=== PATIENT | male | born 1985 | race Two or more races ===

== ENCOUNTER 2020-06-22 11:58 | Emergency (ER) | payer SELFPAY ==
[2020-06-22] MEDS ORDERED: MAG HYDROX/AL HYDROX/SIMETH SUSP 30 ML UDCUP PO ONE (14:32)
[2020-06-22] MEDS ORDERED: METOCLOPRAMIDE HCL ORAL SOLN 10 MG/10 ML UDCUP PO ONE (14:32)
[2020-06-22] MEDS ORDERED: LIDOCAINE 2% VISCOUS SOLN 15 ML UDCUP PO ONE (14:32)
[2020-06-22 15:22] LABS: ABSOLUTE BASOPHILS # (AUTO) 0.1 10^3/uL (0.0-0.2); ABSOLUTE LYMPHOCYTES (AUTO) 1.6 10^3/uL (0.5-4.7); ABSOLUTE MONOCYTES (AUTO) 0.4 10^3/uL (0.1-1.4); ABSOLUTE NEUT (AUTO) 4.2 10^3/uL (1.7-8.2); BASOPHILS % (AUTO) 0.9 % (0-2); EOSINOPHILS % (AUTO) 0.5 % (0-6); HEMATOCRIT 43.8 % (37.9-51.0); LYMPHOCYTES % (AUTO) 24.9 % (13-45); MEAN CORPUSCULAR HEMOGLOBIN 28.8 pg (27.0-33.4); MEAN CORPUSCULAR HGB CONC 34.3 g/dL (32.0-36.0); MEAN CORPUSCULAR VOLUME 84 fl (80-97); MONOCYTES % (AUTO) 5.9 % (3-13); PLATELET COUNT 312 10^3/uL (150-450); RED BLOOD COUNT 5.22 10^6/uL (4.35-5.55); RED CELL DISTRIBUTION WIDTH 14.2 % (11.5-14.0); SEGMENTED NEUTROPHILS % (AUTO) 67.8 % (42-78); TOTAL CELLS COUNTED % (AUTO) 100 %; WHITE BLOOD COUNT 6.3 10^3/uL (4.0-10.5)
[2020-06-22 15:40] LABS: ALBUMIN 4.8 g/dL (3.5-5.0); ALKALINE PHOSPHATASE 82 U/L (38-126); ANION GAP 8 (5-19); ASPARTATE AMINO TRANSFERASE 39 U/L (17-59); BILIRUBIN,TOTAL 0.4 mg/dL (0.2-1.3); BLOOD UREA NITROGEN 15 mg/dL (7-20); CALCIUM 9.8 mg/dL (8.4-10.2); CARBON DIOXIDE 28 mmol/L (22-30); CHLORIDE 104 mmol/L (98-107); GLUCOSE 108 mg/dL (75-110); POTASSIUM 4.7 mmol/L (3.6-5.0); TOTAL PROTEIN 8.4 g/dL (6.3-8.2)
--- NOTE | 2020-06-22 16:54 | ER Document Report ---
ED General - General Chief Complaint: Nausea/Vomiting Stated Complaint: CHILLS/VOMITING Time Seen by Provider: 06/22/20 14:04 Mode of Arrival: Ambulatory Information source: Patient Notes: Use the Induction Manager system to obtain history as well as to help me with exam and explanation of evaluation and work-up. - HPI Notes: Patient presents with nausea and "not feeling right" with some epigastric discomfort. He states he does not have any significant pain he just feels that he has dizziness and a lot of nausea. The discomfort in the epigastric area is mild. It does not radiate. Nothing makes it better or worse. He states this had the symptoms for 2 to 3 days. He denies any pain anywhere other than as mentioned above. No cough cold or congestion. No known covid virus exposures. No significant past medical history. - Related Data Allergies/Adverse Reactions: No Known Allergies Allergy (Unverified 06/22/20 13:43) Past Medical History - General Information source: Patient - Social History Smoking Status: Current Every Day Smoker Frequency of alcohol use: Social Drug Abuse: None Family History: Reviewed & Not Pertinent Patient has homicidal ideation: No Review of Systems - Review of Systems Constitutional: denies: Chills, Fever Cardiovascular: denies: Chest pain, Palpitations Respiratory: denies: Cough, Short of breath -: Yes All other systems reviewed and negative Physical Exam - Vital signs Vitals: Temp Pulse Resp BP Pulse Ox 97.4 F 70 16 138/86 H 99 06/22/20 13:30 06/22/20 13:30 06/22/20 13:30 06/22/20 13:30 06/22/20 13:30 Interpretation: Normal - General General appearance: Appears well, Alert - HEENT Head: Normocephalic, Atraumatic Eyes: Normal Pupils: PERRL - Respiratory Respiratory status: No respiratory distress Chest status: Nontender Breath sounds: Normal Chest palpation: Normal - Cardiovascular Rhythm: Regular Heart sounds: Normal auscultation Murmur: No - Abdominal Inspection: Normal Distension: No distension Bowel sounds: Normal Tenderness: Nontender Organomegaly: No organomegaly - Back Back: Normal, Nontender - Extremities General upper extremity: Normal inspection, Nontender, Normal color, Normal ROM, Normal temperature General lower extremity: Normal inspection, Nontender, Normal color, Normal ROM, Normal temperature, Normal weight bearing. No: Henrietta's sign - Neurological Neuro grossly intact: Yes Cognition: Normal Orientation: AAOx4 [place] Coma Scale Eye Opening: Spontaneous [place] Coma Scale Verbal: Oriented Kryst[place] Coma Scale Motor: Obeys Commands [place] Coma Scale Total: 15 Speech: Normal Motor strength normal: LUE, RUE, LLE, RLE Sensory: Normal - Psychological Associated symptoms: Normal affect, Normal mood - Skin Skin Temperature: Warm Skin Moisture: Dry Skin Color: Normal Course - Re-evaluation Re-evalutation: 06/22/20 17:36 Patient presents with some nausea and "not feeling right with some dizziness. He never had any significant pain. He feels much better after GI cocktail. I think this was a gastrointestinal pathology that led to his symptoms today. His EKG does have some nonspecific changes however 2 EKGs obtained approximate 2 hours apart are unchanged 2 troponins are also negative and he never had any significant pain therefore I think the nonspecific EKG changes can be followed up as an outpatient I will also discharge the patient on Carafate. - Vital Signs Vital signs: Temp Pulse Resp BP Pulse Ox 97.4 F 70 16 138/86 H 99 06/22/20 13:30 06/22/20 13:30 06/22/20 13:30 06/22/20 13:30 06/22/20 13:30 - Laboratory Result Diagrams: 06/22/20 15:00 06/22/20 15:00 Laboratory results interpreted by me: 06/22/20 06/22/20 15:00 15:00 RDW 14.2 H ALT 71 H Total Protein 8.4 H - Diagnostic Test Radiology reviewed: Image reviewed, Reports reviewed - EKG Interpretation by [facility] EKG shows normal: Sinus rhythm Rate: Normal - 60 Rhythm: NSR [place]/QRS: No: Right axis deviation, Left axis deviation Additional EKG results interpreted by me: 06/22/20 16:53 A second EKG was done at approximately 1629. It shows patient to have a normal sinus rhythm. Rate is 67. [place] is normal. There is no significant changes. Discharge - Discharge Clinical Impression: Gastritis Qualifiers: Gastritis type: unspecified gastritis Chronicity: acute Gastritis bleeding: without bleeding Qualified Code(s): K29.00 - Acute gastritis without bleeding Condition: Stable Disposition: HOME, SELF-CARE Instructions: Gastritis ([facility]) Additional Instructions: Please call your primary physician as soon as possible for follow-up. Please try to decrease alcohol and tobacco use as much as possible as this will make your symptoms worse. You also have some nonspecific changes on your EKG and need to follow-up with cardiology as soon as possible. Prescriptions: Sucralfate [Carafate Susp 1 Gm/10 Ml Udcup] 1 gm PO Q6 15 Days #200 ml Forms: Return to Work Referrals: [facility] [Provider Group] - Follow up in 1 week SHAYE SANCHEZ MD [ACTIVE STAFF] - Follow up in 3-5 days Print Language: Sami
[2020-06-22 17:53] VITALS: BP 135/85
--- NOTE | 2020-06-22 19:48 | EKG REPORT ---
SEVERITY:- ABNORMAL ECG - SINUS RHYTHM PROBABLE INFERIOR INFARCT, AGE INDETERMINATE : Confirmed by: Justina Acosta MD 22-Jun-2020 19:47:47
--- NOTE | 2020-06-22 19:48 | EKG REPORT ---
SEVERITY:- ABNORMAL ECG - SINUS RHYTHM PROBABLE INFERIOR INFARCT, AGE INDETERMINATE : Confirmed by: Justina Acosta MD 22-Jun-2020 19:47:43
== END 2020-06-22 17:53 | disposition home or self-care (01) ==
LOC: ER 11:58
DX: K29.00 Acute gastritis without bleeding (principal); R11.2 Nausea with vomiting, unspecified; R10.13 Epigastric pain; R42 Dizziness and giddiness; F17.200 Nicotine dependence, unspecified, uncomplicated
CPT/HCPCS: 93005; 99284; 36415; 83690; 85025; 80053; 84484; 93010; J3490